=== PATIENT | female | born 1960 | race African-American/Black ===

== ENCOUNTER 2024-09-26 17:08 | Emergency (ER) | payer MEDICAID ==
[~2024-09-26] VITALS: Ht 160 cm; Wt 64.0 kg
[2024-09-26 17:15] VITALS: O2SAT 99
[2024-09-26] MEDS ORDERED: AMOX1TAB16 MT (18:46)
[2024-09-26 19:17] VITALS: BP 148/75; PULSE 84; RESP 18; TEMP 36.9; O2SAT 98
== END 2024-09-26 19:18 | disposition home or self-care (01) ==
LOC: ER 17:08
DX: K04.7 Periapical abscess without sinus (principal); I10 Essential (primary) hypertension
CPT/HCPCS: 99283

== ENCOUNTER 2025-01-21 09:50 | Emergency (ER) | payer MEDICAID ==
[~2025-01-21] VITALS: Ht 162.6 cm; Wt 77.0 kg
[~2025-01-21 09:50] MED LIST: AMOX1TAB16 MT
[2025-01-21 09:57] VITALS: O2SAT 98
[2025-01-21] MEDS: ACETAMINOPHEN 325MG TABLET PO ONE ×2 (10:50→14:59)
[2025-01-21 10:53] LABS: BASOPHILS % 0.5 % (0.0-2.0); EOSINOPHILS % 0.9 % (0.0-5.0); HEMATOCRIT. 44.7 % (36.0-48.0); HEMOGLOBIN. 14.4 g/dL (12.0-16.0); LYMPHOCYTES % 19.9 % (20.0-50.0); MEAN PLATELET VOLUME 8.7 fl (7.4-10.4); MONOCYTES % 5.1 % (2.0-8.0); NEUTROPHILS % 73.6 % (40.0-76.0); PLATELET 294 x1000/uL (130-400); RED BLOOD CELL COUNT 4.70 mill/uL (4.2-5.4); RED CELL DISTRIBUTION WIDTH 13.6 % (11.6-14.6)
[2025-01-21 11:07] LABS: CREATININE 1.0 mg/dL (0.6-1.0); UREA NITROGEN BLOOD 8 mg/dL (9-23)
[2025-01-21] MEDS: SODIUM CHLORIDE 0.9% (SEPSIS BOLUS) IV ONE (11:45)
[2025-01-21 11:48] LABS: INR 1.0
[2025-01-21] MEDS: CLINDAMYCIN 600MG PREMIX 50 ML IV ONE (11:52)
[2025-01-21 11:53] LABS: ASPARTATE AMINOTRANSFERASE 22 IU/L (<34); BILIRUBIN DIRECT 0.1 mg/dL (<=3.0); BILIRUBIN TOTAL 0.5 mg/dL (0.1-1.0); PROTEIN TOTAL 7.5 g/dL (6.0-8.3)
[2025-01-21] MEDS ORDERED: CLIN-116 MT (14:00)
[2025-01-21 14:31] VITALS: TEMP 36.9; O2SAT 99
[2025-01-21 14:56] VITALS: BP 146/80; PULSE 76; RESP 20
[2025-01-21] MEDS: IBUPROFEN 400MG TABLET PO ONE (14:56)
[2025-01-21] MEDS ORDERED: IOHEXOL-300 100 ML BOTTLE ONE (17:00)
== END 2025-01-21 14:58 | disposition home or self-care (01) ==
LOC: ER 09:50 → CANBEDREQ 14:45 → ER 14:58
DX: K04.7 Periapical abscess without sinus (principal); I10 Essential (primary) hypertension; R51.9 Headache, unspecified; R60.0 Localized edema
CPT/HCPCS: 80076; 80048; 83605; 85025; 85610; 87040; 36415; 84145; 71045; 70487; 96365; 99285; Q9967; J3490; J7030; Z7610; A4606